=== PATIENT | female | born 1945 | race Caucasian/White ===

== ENCOUNTER 2020-07-31 13:41 | Emergency (ER) | payer OTHER ==
[~2020-07-31 13:41] MED LIST: ALEVE220 MG PO; VICODIN 5/500 505 MG PO
[2020-07-31] MEDS ORDERED: AUGMENTIN 875-875 MG PO (14:48)
[2020-07-31] MEDS ORDERED: MUCINEX1200 M1 PO (14:48)
[2020-07-31] MEDS ORDERED: PREDNISONE20 M1 PO (14:48)
[2020-07-31] MEDS ORDERED: TESSALON PERLE100 MG PO (14:48)
== END 2020-07-31 14:57 | disposition home or self-care (01) ==
LOC: ED 13:41
DX: J01.90 Acute sinusitis, unspecified (principal); J20.9 Acute bronchitis, unspecified; K21.9 Gastro-esophageal reflux disease without esophagitis; E78.5 Hyperlipidemia, unspecified; J44.9 Chronic obstructive pulmonary disease, unspecified; F17.200 Nicotine dependence, unspecified, uncomplicated; Z88.1 Allergy status to other antibiotic agents; Z79.899 Other long term (current) drug therapy; Z90.49 Acquired absence of other specified parts of digestive tract